=== PATIENT | male | born 1945 | race Caucasian/White ===

== ENCOUNTER → 2016-08-28 | Outpatient (CLI) | payer MEDICARE ==
[~2016-08-28] VITALS: Ht 33 cm; Wt 0.5 kg
[~2016-08-28] MED LIST: ALBUAER3 IN; ALPR0.254 PO; ASPI81CH43 GT; ATOR20TA PO; CARV25TA PO; CHOL200021 PO; CLOP75TA28 PO; CYANOCOBALAMIN (B-12) 1000 MCG/1 ML VIAL IM ONE; CYANOCOBALAMIN (B-12) 1000 MCG/1 ML VIAL ONE; DIG0125T PO; DOCU-80 PO; FERR15DR5 PO; FLUT250M2 INH; FURO80TA PO; GABA300C8 PO; GLIP-115 PO; GLY25T PO; ISOS30TA4 PO; METO2.5T11 PO; MULT-228 PO; NITR0.4S29 SL; POTA20IN2 PO; RAMI2.5C33 PO; RAMI5CAP40 PO; SPIR25TA89 PO; TORS20TA20 PO; [UNRECOGNIZED DRUG - CODE] PO
[2016-08-28 10:50] VITALS: BP 119/65
[2016-08-28 12:06] LABS: Basophils # (auto) 0.1 uL; Basophils % (auto) 0.7 % (0.0-2.0); Eosinophils # (auto) 0.4 uL; Eosinophils % (auto) 4.7 % (0.0-7.0); Hematocrit 41.5 % (41.0-53.0); Hemoglobin 13.5 g/dL (13.5-17.5); Lymphocytes # (auto) 0.4 uL; Lymphocytes % (auto) 5.9 % (10.0-50.0); Mean Corpuscular Hgb Conc. 32.5 g/dL (32.0-36.0); Mean Corpuscular Volume 101.5 fL (80.0-100.0); Mean Platelet Volume 8.4 fL (7.4-10.4); Monocytes # (auto) 0.7 uL; Monocytes % (auto) 9.7 % (0.0-12.0); Platelet Count (auto) 223 10^3/uL (140-450); White Blood Cell 7.6 10^3/uL (4.4-10.8)
[2016-08-28 12:39] LABS: BUN/Creatinine Ratio 20.5; Calcium 8.9 mg/dL (8.5-10.1); Magnesium 2.7 mg/dL (1.6-2.6); Potassium 3.7 mmol/L (3.5-5.1)
[2016-08-28 13:10] LABS: B-Type Natriuretic Peptide 1054.7 pg/mL (0-100); Temperature: 21.6 C (20.0-25.0)
== END | disposition home or self-care (01) ==
LOC: CHF HDHVI 10:08
PROVIDERS: ATTEND Internal Medicine Cardiovascular Disease
DX: I10 Essential (primary) hypertension (principal); I50.9 Heart failure, unspecified; D64.9 Anemia, unspecified
CPT/HCPCS: 36415; 80048; 83735; 83880; 85025; 96372; 96374; G0463; J1642

== ENCOUNTER → 2016-10-20 | Outpatient (CLI) | payer MEDICARE ==
[~2016-10-20] MED LIST changes: +FUROSEMIDE 100 MG/10ML VIAL IV ONE; +FUROSEMIDE 40 MG/4 ML VIAL IV ONE; +FUROSEMIDE 40 MG/4 ML VIAL ONE; +POTASSIUM CHL 20 Meq TABLET PO ONE; +methylPREDNISolone SOD SUCC 125 MG/2 ML VL IV ONE; +methylPREDNISolone SOD SUCC 125 MG/2 ML VL ONE
[2016-10-20 15:25] VITALS: BP 115/68
[2016-10-20 17:24] LABS: Potassium 3.6 mmol/L (3.5-5.1)
[2016-10-20 17:42] LABS: B-Type Natriuretic Peptide 954.78 pg/mL (0-100); Temperature: 24.1 C (20.0-25.0)
== END | disposition home or self-care (01) ==
LOC: CHF HDHVI 13:52
PROVIDERS: ATTEND Internal Medicine Cardiovascular Disease
DX: I10 Essential (primary) hypertension (principal); I50.9 Heart failure, unspecified; R94.4 Abnormal results of kidney function studies; T46.0X6D Underdosing of cardiac-stimulant glycosides and drugs of similar action, subsequent encounter; E55.9 Vitamin D deficiency, unspecified
CPT/HCPCS: 36415; 80162; 82306; 82565; 83880; 84132; 84520; 93701; 96372; 96374; 96375; G0463

== ENCOUNTER → 2016-12-09 | Outpatient (CLI) | payer MEDICARE ==
[~2016-12-09] VITALS: Ht 30.5 cm; Wt 0.5 kg
[~2016-12-09] MED LIST changes: +CATHFLO ACTIVASE (ALTEPLASE) 2 MG VIAL IV ONE; -CYANOCOBALAMIN (B-12) 1000 MCG/1 ML VIAL IM ONE; -CYANOCOBALAMIN (B-12) 1000 MCG/1 ML VIAL ONE; -FUROSEMIDE 100 MG/10ML VIAL IV ONE; -FUROSEMIDE 40 MG/4 ML VIAL IV ONE; -FUROSEMIDE 40 MG/4 ML VIAL ONE; +GABA-497 PO; -GABA300C8 PO; -POTASSIUM CHL 20 Meq TABLET PO ONE; +STERILE WATER 10 ML ONE; -methylPREDNISolone SOD SUCC 125 MG/2 ML VL IV ONE; -methylPREDNISolone SOD SUCC 125 MG/2 ML VL ONE
[2016-12-09 12:20] VITALS: BP 112/77
[2016-12-09 15:58] VITALS: BP 110/78
[2016-12-09 16:36] LABS: Albumin 3.5 g/dL (3.4-5.0); BUN/Creatinine Ratio 25.9; Bilirubin, Total 1.3 mg/dL (0.2-1.0); Calcium 9.2 mg/dL (8.5-10.1); Potassium 3.8 mmol/L (3.5-5.1); Total Protein 6.6 g/dL (6.4-8.2)
[2016-12-09 16:53] LABS: Basophils # (auto) 0.1 uL; Basophils % (auto) 0.8 % (0.0-2.0); DEFINITIVE VIEW TRANSMISSION; Eosinophils # (auto) 0.7 uL; Eosinophils % (auto) 9.1 % (0.0-7.0); Hematocrit 42.4 % (41.0-53.0); Hemoglobin 13.8 g/dL (13.5-17.5); Lymphocytes # (auto) 0.4 uL; Lymphocytes % (auto) 6.2 % (10.0-50.0); Mean Corpuscular Hemoglobin 33.5 pg (28.0-32.0); Mean Corpuscular Hgb Conc. 32.6 g/dL (32.0-36.0); Mean Corpuscular Volume 102.8 fL (80.0-100.0); Mean Platelet Volume 8.7 fL (7.4-10.4); Monocytes # (auto) 0.8 uL; Monocytes % (auto) 11.2 % (0.0-12.0); Neutrophils # (auto) 5.2 uL; Neutrophils % (auto) 72.7 % (37.0-80.0); Platelet Count (auto) 205 10^3/uL (140-450); Red Cell Distribution Width 17.9 % (11.6-16.0); White Blood Cell 7.2 10^3/uL (4.4-10.8)
[2016-12-09 17:30] LABS: B-Type Natriuretic Peptide 591.33 pg/mL (0-100); Temperature: 23.3 C (20.0-25.0)
[2016-12-09 19:11] LABS: Platelet Estimate Adequate
[2016-12-09 19:12] LABS: Macrocytosis Slight
== END | disposition home or self-care (01) ==
LOC: CHF HDHVI 12:33
PROVIDERS: ATTEND Internal Medicine Cardiovascular Disease
DX: I10 Essential (primary) hypertension (principal); I50.9 Heart failure, unspecified; E11.9 Type 2 diabetes mellitus without complications; D64.9 Anemia, unspecified
CPT/HCPCS: 36415; 80053; 83036; 83880; 85025; G0463; J1642

== ENCOUNTER → 2016-12-17 | Outpatient (CLI) | payer MEDICARE ==
[~2016-12-17] MED LIST changes: +ALBUTEROL SULF 2.5 MG/0.5ML(0.5%) NEB SOLN NEB ONE; +ALBUTEROL SULF 2.5 MG/0.5ML(0.5%) NEB SOLN ONE; -CATHFLO ACTIVASE (ALTEPLASE) 2 MG VIAL IV ONE; +CYANOCOBALAMIN (B-12) 1000 MCG/1 ML VIAL IM ONE; +CYANOCOBALAMIN (B-12) 1000 MCG/1 ML VIAL ONE; -STERILE WATER 10 ML ONE
[2016-12-17 14:40] VITALS: BP 120/53
== END | disposition home or self-care (01) ==
LOC: CHF HDHVI 12:09
PROVIDERS: ATTEND Internal Medicine Cardiovascular Disease
DX: I50.9 Heart failure, unspecified (principal); I25.10 Atherosclerotic heart disease of native coronary artery without angina pectoris; I48.91 Unspecified atrial fibrillation; I51.7 Cardiomegaly; J44.9 Chronic obstructive pulmonary disease, unspecified; F41.9 Anxiety disorder, unspecified; G89.29 Other chronic pain; Z79.01 Long term (current) use of anticoagulants
CPT/HCPCS: 71020; 94640; 96372; G0463; J3420

== ENCOUNTER → 2017-02-09 | Outpatient (CLI) | payer MEDICARE ==
[~2017-02-09] MED LIST changes: -ALBUTEROL SULF 2.5 MG/0.5ML(0.5%) NEB SOLN NEB ONE; -ALBUTEROL SULF 2.5 MG/0.5ML(0.5%) NEB SOLN ONE; -CYANOCOBALAMIN (B-12) 1000 MCG/1 ML VIAL IM ONE; -CYANOCOBALAMIN (B-12) 1000 MCG/1 ML VIAL ONE
[2017-02-09 17:14] LABS: BUN/Creatinine Ratio 21.7; Calcium 8.8 mg/dL (8.5-10.1); Potassium 3.7 mmol/L (3.5-5.1)
== END | disposition home or self-care (01) ==
LOC: LAB 10:33
PROVIDERS: ATTEND Internal Medicine Cardiovascular Disease
DX: I10 Essential (primary) hypertension (principal)
CPT/HCPCS: 36415; 80048

== ENCOUNTER → 2017-03-11 | Outpatient (CLI) | payer MEDICARE ==
[~2017-03-11] VITALS: Ht 33 cm; Wt 0.5 kg
[~2017-03-11] MED LIST changes: +BUMETANIDE (0.25MG/ML) 4 ML VIAL IV ONE; +BUMETANIDE (0.25MG/ML) 4 ML VIAL ONE; +CYANOCOBALAMIN (B-12) 1000 MCG/1 ML VIAL IM ONE; +CYANOCOBALAMIN (B-12) 1000 MCG/1 ML VIAL ONE; +POTASSIUM CHL 20 Meq TABLET PO ONE
[2017-03-11 16:21] LABS: Basophils # (auto) 0 uL; Basophils % (auto) 0.5 % (0.0-2.0); CONDITION Y; DEFINITIVE SEE PRINTOUT; Eosinophils # (auto) 0.1 uL; Eosinophils % (auto) 1.4 % (0.0-7.0); Hematocrit 44.3 % (41.0-53.0); Hemoglobin 14.1 g/dL (13.5-17.5); Lymphocytes # (auto) 0.6 uL; Mean Corpuscular Hemoglobin 34.1 pg (28.0-32.0); Mean Corpuscular Hgb Conc. 31.8 g/dL (32.0-36.0); Mean Corpuscular Volume 107.4 fL (80.0-100.0); Mean Platelet Volume 8.8 fL (7.4-10.4); Monocytes # (auto) 0.8 uL; Monocytes % (auto) 9.5 % (0.0-12.0); Neutrophils # (auto) 6.8 uL; Neutrophils % (auto) 81.6 % (37.0-80.0); Platelet Count (auto) 229 10^3/uL (140-450); White Blood Cell 8.3 10^3/uL (4.4-10.8)
[2017-03-11 16:31] LABS: Albumin 3.2 g/dL (3.4-5.0); BUN/Creatinine Ratio 27.1; Calcium 9.3 mg/dL (8.5-10.1); Magnesium 2.6 mg/dL (1.6-2.6); Potassium 3.9 mmol/L (3.5-5.1); Red Cell Distribution Width 21.7 % (11.6-16.0)
[2017-03-11 16:34] LABS: Bilirubin, Total 1.5 mg/dL (0.2-1.0); Total Protein 6.2 g/dL (6.4-8.2)
[2017-03-11 17:20] VITALS: BP 123/83
[2017-03-11 17:57] LABS: Anisocytosis Slight; Macrocytosis Slight; Ovalocytes FEW; Platelet Estimate Adequate
[2017-03-11 18:12] LABS: B-Type Natriuretic Peptide 1191.61 pg/mL (0-100)
[2017-03-11 18:15] LABS: Temperature: 22.2 C (20.0-25.0)
== END | disposition home or self-care (01) ==
LOC: CHF HDHVI 14:31
PROVIDERS: ATTEND Internal Medicine Cardiovascular Disease
DX: I11.0 Hypertensive heart disease with heart failure (principal); I50.9 Heart failure, unspecified; E11.9 Type 2 diabetes mellitus without complications; E83.42 Hypomagnesemia
CPT/HCPCS: 36415; 80053; 83036; 83735; 83880; 85025; 93701; 96372; 96374; 96375; G0463; J1642; J3420

== ENCOUNTER → 2017-03-16 | Outpatient (CLI) | payer MEDICARE ==
[~2017-03-16] MED LIST changes: -ASPI81CH43 GT; +ASPI81CH43 PO; -BUMETANIDE (0.25MG/ML) 4 ML VIAL IV ONE; -BUMETANIDE (0.25MG/ML) 4 ML VIAL ONE; +CARV6.25 PO; -CYANOCOBALAMIN (B-12) 1000 MCG/1 ML VIAL IM ONE; -CYANOCOBALAMIN (B-12) 1000 MCG/1 ML VIAL ONE; +FLUT1SPR21; +HYDR-391 PO; +IPRASOL39 NEB; +IVAB1.7T PO; -POTASSIUM CHL 20 Meq TABLET PO ONE; +TORS20TA19 PO
[2017-03-16 12:00] VITALS: BP 93/67
== END | disposition home or self-care (01) ==
LOC: CHF HDHVI 10:34
PROVIDERS: ATTEND Internal Medicine Cardiovascular Disease
DX: I50.9 Heart failure, unspecified (principal); J44.9 Chronic obstructive pulmonary disease, unspecified; E87.70 Fluid overload, unspecified
CPT/HCPCS: G0463